=== PATIENT | female | born 1990 | race Hispanic/Latino ===

== ENCOUNTER 2021-08-18 13:31 | Emergency (ER) | payer SELFPAY ==
[2021-08-18] MEDS ORDERED: Ondansetron ODT 4 MG TAB ONE (14:35)
[2021-08-18] MEDS ORDERED: Acetaminophen 325 MG TAB ONE (14:35)
[2021-08-18] MEDS ORDERED: Ibuprofen 200 MG TAB ONE (14:36)
== END 2021-08-18 15:15 | disposition home or self-care (01) ==
LOC: ERS 13:31
DX: R56.9 Unspecified convulsions (principal); R51.9 Headache, unspecified; R11.0 Nausea; Z79.899 Other long term (current) drug therapy
CPT/HCPCS: 36416; 93005; Q0162